=== PATIENT | male | born 1995 | race Caucasian/White ===

== ENCOUNTER 2019-02-08 12:15 | Emergency (ER) | payer MEDICAID, SELFPAY ==
[2019-02-08 12:17] VITALS: BP 126/77; PULSE 100; RESP 18; TEMP 36.9; O2SAT 100; BMI 22.4
--- NOTE | 2019-02-08 12:25 | EKG12_ITS ---
Test Reason : CP Blood Pressure : / mmHG Vent. Rate : 075 BPM Atrial Rate : 075 BPM P-R Int : 126 ms QRS Dur : 094 ms QT Int : 386 ms P-R-T Axes : 061 065 051 degrees QTc Int : 431 ms Sinus rhythm with marked sinus arrhythmia Otherwise normal ECG Confirmed by ZHOU SCHUMACHER, IVORY ([id number]), food expeditor ANNA HANDY ([id number]) on 02/13/2019 11:10:00 AM Referred By: MICHELA Confirmed By:IVORY EPPERSON MD
--- NOTE | 2019-02-08 12:41 | RAD_ITS ---
STUDY: X-RAY CHEST REASON FOR EXAM: Male, 23 years old. Chest pain and shortness of breath for 5 days TECHNIQUE: PA and lateral views of the chest. COMPARISON: None. FINDINGS: There is a granuloma in the right upper lobe. No airspace consolidation. There is no demonstrated pleural abnormality. Normal size heart. Normal mediastinum and tyler. Normal visualized pulmonary arteries. Normal visualized aortic arch and descending thoracic aorta. Normal visualized thoracic spine. Normal visualized ribs, clavicles, and shoulders. There is no demonstrated abnormality of the visualized soft tissue structures of the upper abdomen. RAD/Chest PA and Lateral IMPRESSION: No acute cardiopulmonary process. Electronically Signed: Kyle Duffy MD (Brooks) at 13:36 EDT , Service support ,
[2019-02-08 13:17] LABS: Bacteria 0 SEEN /hpf (None Seen); Mucous, Urine 0 SEEN /hpf (<or=2+); Red Blood Cells-Urine 0 SEEN /hpf (0-5); Squamous Epithelial Cells - UA 0 SEEN /hpf (0-5); White Blood Cells 0 SEEN /hpf (0-5)
[2019-02-08 13:24] LABS: Color, Urine Yellow (Yellow); Glucose, Dipstick Normal (Normal); Ketone-Dipstick Negative (Negative); Leukocyte Esterase-Dipstick Negative /ul (Negative); Nitrite-Dipstick Negative (Negative); Occult Blood-Urine Negative /ul (Negative); Protein-Dipstick Negative (Negative); Urine Bilirubin Dipstick Negative (Negative); Urine Clarity Clear (Clear); Urine Urobilinogen Normal (Normal)
--- NOTE | 2019-02-08 13:49 | ED.VISSUMM ---
- ER Visit Summary Date of Service: 02/08/19 Chief Complaint: Chest pain History of Present Illness: The patient is a 23 M who presents with chest pain that began 5 days ago. Patient states he was wrestling with his brother and his brother fell on him. Patient states his brother weighs 300 pounds. Patient states the pain is over the left chest. Patient describes the pain as sharp. Patient states pain is worse with movement and coughing. Patient states nothing is been helping with the pain. Patient denies any cough or shortness of breath. Patient states he just hurts to take a deep breath. Patient does admit to some hematuria. Patient noted some pink color to his urine one time in the last 5 days. Physical Examination: Vital signs are stable. Patient is afebrile. Patient is in no acute distress. Oral mucosa is pink and moist. Neck is supple. Trachea is midline. There is no JVD noted. Heart was regular rate and rhythm. Lungs are clear and equal bilaterally. There is good respiratory effort noted. There is tenderness over the left chest. Abdomen is soft and nontender. Cranial nerves II through XII are intact. There are no focal motor or sensory deficits noted. Test Results: EKG was obtained and showed a sinus rhythm with a rate of 75. There are no acute ST or T wave changes. Since the patient did also admit to some hematuria urinalysis was obtained and was normal. PA and lateral chest x-ray was obtained. There is no acute cardiopulmonary process. Emergency Department Course and Treatment: Patient was advised of his findings. Patient was instructed to take 10-15 deep breaths every hour while awake to prevent atelectasis and pneumonia. Patient was instructed to take Tylenol or ibuprofen as needed for pain. Patient was instructed to use ice to the area. Patient was instructed to follow-up with his primary care physician in 5 to 7 days. Patient and his mother understood and were agreeable with the plan. All questions were answered. Disposition: Discharge home Impression: Chest wall contusion This note was generated with [employer] dictation software. It may contain incorrect words, spelling, and punctuation that were not noted in review of the chart prior to signing ED Disposition - Plan for ED Patient: Disposition: Home or Assisted Living Diagnosis: Chest wall pain Instructions: Chest Wall Contusion Referrals: Mahad Aleman MD [Primary Care Provider] - 5-7 Days
== END 2019-02-08 14:02 | disposition home or self-care (01) ==
PROVIDERS: Emergency Provider Emergency Medicine; Family Provider Family Medicine; PCP Family Medicine
DX: S20.219A Contusion of unspecified front wall of thorax, initial encounter (principal); M54.2 Cervicalgia; R31.9 Hematuria, unspecified; W03.XXXA Other fall on same level due to collision with another person, initial encounter; Y93.72 Activity, wrestling; Y92.9 Unspecified place or not applicable; Y99.9 Unspecified external cause status; Z72.0 Tobacco use
CPT/HCPCS: 71046; 81001; 93005; 99282; A4216

== ENCOUNTER 2022-08-06 17:12 | Emergency (ER) | payer MEDICAID, SELFPAY ==
[2022-08-06 17:13] VITALS: BP 144/73; PULSE 94; RESP 14; TEMP 37.3; O2SAT 100; BMI 21.7
--- NOTE | 2022-08-06 17:25 | RAD_ITS ---
STUDY: X-RAY - LEFT SHOULDER REASON FOR EXAM: Male, 27 years old. pain TECHNIQUE: 2 view(s) of the shoulder. COMPARISON: None. FINDINGS: Normal glenohumeral articulation. Normal acromioclavicular joint. Normal acromion. Normal humeral head and visualized proximal humerus. The soft tissue structures are unremarkable. Normal visualized pulmonary apex. RAD/Shoulder min 2 Views IMPRESSION: Normal x-ray examination of the shoulder. Electronically Signed: Jonathan De La Garza MD at 18:15 EDT ,
--- NOTE | 2022-08-06 17:25 | RAD_ITS ---
STUDY: X-RAY CHEST REASON FOR EXAM: Male, 27 years old. rib pain TECHNIQUE: PA and lateral COMPARISON: December 09, 2014 FINDINGS: The lungs are clear and expanded. Tiny well marginated nodule in the right upper lobe most likely granuloma. There is no demonstrated pleural abnormality. Normal size heart. Normal mediastinum. Tiny calcified right hilar nodes Normal visualized pulmonary arteries. Normal visualized aortic arch and descending thoracic aorta. Normal visualized thoracic spine. Normal visualized ribs, clavicles, and shoulders. There is no demonstrated abnormality of the visualized soft tissue structures of the upper abdomen. No significant change since prior exam RAD/Chest PA and Lateral IMPRESSION: No acute cardiopulmonary pathology.. No definitive evidence for acute rib fracture however if symptoms persist oblique views of the ribs recommended for further assessment Electronically Signed: Jonathan De La Garza MD at 18:14 EDT ,
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
--- NOTE | 2022-08-06 17:40 | RAD_ITS ---
STUDY: X-RAY - LEFT KNEE REASON FOR EXAM: Male, 27 years old. pain TECHNIQUE: 4 view(s) of the knee. COMPARISON: July 24, 2016 FINDINGS: Normal visualized distal femur. Normal visualized proximal tibia and fibula. Normal proximal tibiofibular articulation. Normal medial femorotibial compartment. Normal lateral femorotibial compartment. Normal patellofemoral articulation. Postop change status post ACL repair RAD/Knee 4 or More Views IMPRESSION: Postsurgical changes. No evidence for acute fracture or dislocation. If pain persists MRI recommended Electronically Signed: Jonathan De La Garza MD at 18:16 EDT ,
[2022-08-06] MEDS: Ibuprofen 600 MG Tablet PO (18:01)
[2022-08-06 18:04] VITALS: BP 114/67; PULSE 61; RESP 17; O2SAT 98
[2022-08-06 18:25] VITALS: PULSE 61; RESP 17; O2SAT 98
== END 2022-08-06 18:35 | disposition home or self-care (01) ==
PROVIDERS: Emergency Provider Emergency Medicine; PCP Family Medicine; Visit Provider Emergency Medicine
DX: S40.012A Contusion of left shoulder, initial encounter (principal); R07.81 Pleurodynia; F17.210 Nicotine dependence, cigarettes, uncomplicated; V43.62XA Car passenger injured in collision with other type car in traffic accident, initial encounter; M25.562 Pain in left knee
CPT/HCPCS: 71046; 73030; 73564; 99284